=== PATIENT | male | born 1995 | race Caucasian/White ===

== ENCOUNTER 2016-12-02 20:26 | Emergency (ER) | payer OTHER ==
--- NOTE | 2016-12-02 21:19 | DIRPT ---
CLINICAL DATA: Left foot and ankle pain after fall. Eversion twisting injury earlier today while running down stairs. Pain and swelling most significant laterally. EXAM: LEFT ANKLE COMPLETE - 3+ VIEW COMPARISON: None. FINDINGS: No fracture or dislocation. The alignment and joint spaces are maintained. The ankle mortise is preserved. Mild soft tissue edema. Question tibial talar joint effusion. IMPRESSION: Soft tissue edema and question joint effusion. No fracture or dislocation. Electronically Signed By: Anita Santoyo M.D. On: 12/02/2016 21:16
--- NOTE | 2016-12-02 21:20 | DIRPT ---
CLINICAL DATA: Left foot and ankle pain after injury. Eversion twisting injury earlier today while running down stairs. Pain most prominent laterally. EXAM: LEFT FOOT - COMPLETE 3+ VIEW COMPARISON: None. FINDINGS: No fracture or dislocation. The alignment and joint spaces are maintained. Question tibiotalar joint effusion. Mild soft tissue edema. IMPRESSION: No fracture or dislocation of the left foot. Electronically Signed By: Anita Santoyo M.D. On: 12/02/2016 21:17
[2016-12-02 21:54] VITALS: TEMP 98.8
[2016-12-02 21:56] VITALS: BMI 20.2
--- NOTE | 2016-12-02 22:05 | EDPRACDOC ---
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 Tetanus Up To Date?: No ED Past Medical History - Social Medical History Smoking Status: Heavy tobacco smoker (5 or more cigarettes/day or daily pipe/ cigar) - Physical Exam Last recorded Vital Signs: Last Vital Signs Temp 98.8 F 12/02/16 21:53 Pulse 68 12/02/16 21:53 Resp 18 12/02/16 21:53 BP 104/63 12/02/16 21:53 Pulse Ox 97 12/02/16 21:53 Oxygen Pulse Oxygen Saturation 97 O2 Device Oxygen Flow Rate Fraction of Inspired Oxygen ( FIO2) Decision Time to Discharge: 22:03 - Departure Disposition: Home Condition: Good Final Diagnosis: Ankle sprain Qualifiers: Encounter type: initial encounter Involved ligament of ankle: unspecified ligament Laterality: left Qualified Code(s): S93.402A - Sprain of unspecified ligament of left ankle, initial encounter Instructions: RICE: Routine Care for Injuries Education/Counseling Given To: Patient Education/Counseling Given Regarding: Diagnosis, Treatment, Follow Up Referrals: None,No Provider [Primary Care Provider] - One Week DANICA GONZALEZ [NonStaff] - One Week Jonathan Joshi II, MD [Staff Physician] - One Week Darrian Martinez MD [Staff Physician] - One Week Additional Instructions: IBUPROFEN NEEDED FOR PAIN. USE CRUTCHES MUCH POSSIBLE. IF YOU NEED TO BE OUT OF WORK FOR MORE THAN THE TIME GIVEN HERE, YOU MUST GET THIS FROM YOUR PCP OR ORTHO.
--- NOTE | 2016-12-02 22:11 | EDPRACDOC ---
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 NO OTHER INJURY REPORTED. Ankle Problem Location: Reports: Left, Lateral Mechanism: Reports: Inversion Circumstances: Reports: Fall Tetanus Up To Date?: No Able to Bear Weight: Fully Pain Severity: Reports: Mild Associated Signs & Symptoms: Reports: None ED Past Medical History - History Reviewed Yes Nurses notes reviewed and agree except as marked - Social Medical History Smoking Status: Heavy tobacco smoker (5 or more cigarettes/day or daily pipe/ cigar) EDM Review of Systems - Review of Systems ROS Negative Except as Marked: Yes All systems reviewed and were negative except as marked Constitutional: No Symptoms Reported Respiratory: No Symptoms Reported Cardiovascular: No Symptoms Reported Gastrointestinal: No Symptoms Reported Neurological: No Symptoms Reported Musculoskeletal: Ankle Integumentary: No Symptoms Reported - Physical Exam Constitutional: Alert (Awake), No apparent distress Oriented to: Time, Person, Place Last recorded Vital Signs: Last Vital Signs Temp 98.8 F 12/02/16 21:53 Pulse 68 12/02/16 21:53 Resp 18 12/02/16 21:53 BP 104/63 12/02/16 21:53 Pulse Ox 97 12/02/16 21:53 Oxygen Pulse Oxygen Saturation 97 O2 Device Oxygen Flow Rate Fraction of Inspired Oxygen ( FIO2) - HEENT Head: Normal Eye Exam: Normal Neck: Normal, Denies Pain, Midline - Respiratory/Cardiovascular Respiratory: Normal - CTA Cardiovascular: Normal - GI Palpation: Normal Tenderness: Non tender Decision Time to Discharge: 22:03 - Departure Condition: Good Final Diagnosis: Ankle sprain Qualifiers: Encounter type: initial encounter Involved ligament of ankle: unspecified ligament Laterality: left Qualified Code(s): S93.402A - Sprain of unspecified ligament of left ankle, initial encounter Instructions: RICE: Routine Care for Injuries Referrals: Darrian Martinez MD [Staff Physician] - One Week DANICA GONZALEZ [NonStaff] - One Week None,No Provider [Primary Care Provider] - One Week Jonathan Joshi II, MD [Staff Physician] - One Week Additional Instructions: IBUPROFEN NEEDED FOR PAIN. USE CRUTCHES MUCH POSSIBLE. IF YOU NEED TO BE OUT OF WORK FOR MORE THAN THE TIME GIVEN HERE, YOU MUST GET THIS FROM YOUR PCP OR ORTHO.
[2016-12-02 22:25] VITALS: BP 114/68; PULSE 79
== END 2016-12-02 22:38 | disposition home or self-care (01) ==
LOC: EDMC 20:26
DX: S93.402A Sprain of unspecified ligament of left ankle, initial encounter (principal); W19.XXXA Unspecified fall, initial encounter
CPT/HCPCS: 99283